=== PATIENT | female | born 1965 | race Caucasian/White ===

== ENCOUNTER 2023-12-13 00:50 | Emergency (ER) | payer MEDICAID ==
[~2023-12-13] VITALS: Ht 152.4 cm; Wt 51.0 kg
[2023-12-13 01:04] VITALS: O2SAT 96
[2023-12-13] MEDS ORDERED: KETOROLAC 15MG/ML VIAL IV ONE (08:00)
[2023-12-13 08:12] LABS: BASOPHILS % 0.5 % (0.0-2.0); EOSINOPHILS % 1.3 % (0.0-5.0); HEMATOCRIT. 41.5 % (36.0-48.0); HEMOGLOBIN. 14.4 g/dL (14.0-18.0); LYMPHOCYTES % 29.7 % (20.0-50.0); MEAN CORPUSCULAR HEMOGLOBIN 33.1 pg (28.0-32.0); MEAN CORPUSCULAR HGB CONC 34.5 g/dL (31.0-37.0); MEAN CORPUSCULAR VOLUME 95.9 fL (81.0-99.0); MEAN PLATELET VOLUME 8.2 fl (7.4-10.4); MONOCYTES % 8.5 % (2.0-8.0); PLATELET 195 x1000/uL (130-400); RED BLOOD CELL COUNT 4.33 mill/uL (4.2-5.4); RED CELL DISTRIBUTION WIDTH 12.9 % (11.6-14.6); WHITE BLOOD COUNT 6.3 x1000/uL (4.5-11.0)
[2023-12-13 08:26] LABS: PROTHROMBIN TIME 10.7 sec (9.6-11.0)
[2023-12-13 08:28] LABS: CHLORIDE 109 mEq/L (98-107); POTASSIUM 3.6 mEq/L (3.5-5.1); SODIUM 140 mEq/L (136-145)
[2023-12-13 08:29] LABS: CALCIUM 9.3 mg/dL (8.7-10.4); CARBON DIOXIDE 23 mEq/L (21-32)
[2023-12-13 08:34] LABS: CREATININE 0.5 mg/dL (0.6-1.0); GLUCOSE 122 mg/dL (70-105); UREA NITROGEN BLOOD 13 mg/dL (9-23)
[2023-12-13] MEDS: KETOROLAC 15MG/ML VIAL IV NR (11:30)
[2023-12-13] MEDS ORDERED: IOHEXOL-300 100 ML BOTTLE ONE (15:09)
[2023-12-13] MEDS ORDERED: TRAM-529 MT (16:11)
[2023-12-13 16:54] VITALS: BP 132/77; PULSE 84; RESP 18; TEMP 97.8
== END 2023-12-13 16:55 | disposition home or self-care (01) ==
LOC: ER 01:15 → EDSEX 01:15 → ER 16:55
DX: R10.30 Lower abdominal pain, unspecified (principal)
CPT/HCPCS: 99285; 74177; 96374; 80048; 83690; 85025; 85610; 36415; Q9967; J1885